=== PATIENT | male | born 1955 | race Two or more races ===

== ENCOUNTER 2020-04-22 23:11 | Emergency (ER) | payer MEDICARE, MEDICAID ==
[~2020-04-22] VITALS: Ht 165.1 cm; Wt 74.8 kg
[2020-04-23] MEDS ORDERED: InsuLIN REG 1unit/0.01ml Soln (100units/ml) ONE (00:39)
[2020-04-23] MEDS ORDERED: SODIUM CHLORIDE 0.9% 1,000 ML IV ONE (00:45)
[2020-04-23] MEDS ORDERED: InsuLIN REG 1unit/0.01ml Soln (100units/ml) IV ONE (00:45)
[2020-04-23 01:09] LABS: Hematocrit 42.5 % (41.0-53.0); Hemoglobin 14.8 g/dL (13.5-17.5); Mean Corpuscular Hemoglobin 32.2 pg (28.0-32.0); Mean Corpuscular Hgb Conc. 34.9 g/dL (32.0-36.0); Mean Corpuscular Volume 92.3 fL (80.0-100.0); Platelet Count (auto) 376 10^3/uL (140-450); Red Cell Distribution Width 13.2 % (11.8-14.3); White Blood Cell 10.9 10^3/uL (4.4-10.8)
[2020-04-23 01:12] LABS: Band Neutrophils % (manual) 0; Basophils % (manual) 0 (0.0-2.0); Blast Cells 0; Eosinophils % (manual) 0 (0-7); Metamyelocytes % 0; Myelocytes % 0; Promyelocytes % 0; Reactive Lymphocytes 0
[2020-04-23 01:21] LABS: Albumin 3.6 g/dL (3.4-5.0); BUN/Creatinine Ratio 15.6; Calcium 9.1 mg/dL (8.5-10.1); Potassium 4.2 mmol/L (3.5-5.1)
[2020-04-23 01:24] LABS: Bilirubin, Total 0.4 mg/dL (0.2-1.0); Total Protein 8.5 g/dL (6.4-8.2)
[2020-04-23 01:25] LABS: Lymphocytes % (manual) 32 (10.0-50.0); Monocytes % (manual) 8 (0-12)
[2020-04-23] MEDS ORDERED: CLINDAMYCIN 900MG IV 50 ML IV ONE (03:30)
[2020-04-23] MEDS ORDERED: cefTRIAXone SOD 1,000 MG VL IV ONE (03:30)
[2020-04-23 05:28] VITALS: BP 169/83
== END 2020-04-23 06:49 | disposition home or self-care (01) ==
LOC: ER 23:11
DX: S91.331A Puncture wound without foreign body, right foot, initial encounter (principal); M72.2 Plantar fascial fibromatosis; E11.65 Type 2 diabetes mellitus with hyperglycemia; I10 Essential (primary) hypertension; X58.XXXA Exposure to other specified factors, initial encounter; Y93.89 Activity, other specified; Y92.89 Other specified places as the place of occurrence of the external cause; Y99.8 Other external cause status
CPT/HCPCS: 36415; 73700; 80053; 82010; 82962; 85007; 85027; 96361; 96365; 96366; 96375; 99284; J0696; J1815; J3490

== ENCOUNTER 2021-06-12 19:04 | Emergency (ER) | payer MEDICARE, MEDICAID ==
[~2021-06-12] VITALS: Ht 154.9 cm; Wt 81.6 kg
[2021-06-12] MEDS ORDERED: SODIUM CHLORIDE 0.9% 1,000 ML IVB ONE (19:30)
[2021-06-12] MEDS ORDERED: InsuLIN REG 1unit/0.01ml Soln (100units/ml) IV ONE (19:30)
[2021-06-12 19:49] LABS: Basophils # (auto) 0 10 ^3/uL (0-0.2); Basophils % (auto) 0.4 % (0.0-2.0); Eosinophils # (auto) 0.1 10 ^3/uL (0-0.8); Eosinophils % (auto) 0.6 % (0.0-7.0); Hematocrit 37.8 % (41.0-53.0); Hemoglobin 12.9 g/dL (13.5-17.5); Lymphocytes # (auto) 1.7 10 ^3/uL (0.4-5.4); Lymphocytes % (auto) 18.1 % (10.0-50.0); Mean Corpuscular Hemoglobin 31.2 pg (28.0-32.0); Mean Corpuscular Hgb Conc. 34.1 g/dL (32.0-36.0); Mean Corpuscular Volume 91.6 fL (80.0-100.0); Monocytes # (auto) 0.6 10 ^3/uL (0-1.3); Monocytes % (auto) 6.8 % (0.0-12.0); Neutrophils # (auto) 6.9 10 ^3/uL (1.6-8.6); Neutrophils % (auto) 74.1 % (37.0-80.0); Red Blood Cells 4.12 10^6/uL (4.5-5.90); Red Cell Distribution Width 13.1 % (11.8-14.3); White Blood Cell 9.3 10^3/uL (4.4-10.8)
[2021-06-12 20:04] LABS: Calcium 8.7 mg/dL (8.5-10.1); Potassium 4.5 mmol/L (3.5-5.1)
[2021-06-12 20:14] LABS: Albumin 3.3 g/dL (3.4-5.0); BUN/Creatinine Ratio 12.1; Bilirubin, Total 0.4 mg/dL (0.2-1.0); Magnesium 1.6 mg/dL (1.6-2.6); Total Protein 7.9 g/dL (6.4-8.2)
[2021-06-13] MEDS ORDERED: BACITRACIN TOP OINT 1 UD PKG TOP ONE (04:15)
[2021-06-13 05:50] VITALS: BP 128/59
== END 2021-06-13 06:30 | disposition home or self-care (01) ==
LOC: ER 19:08
DX: E11.65 Type 2 diabetes mellitus with hyperglycemia (principal); F10.20 Alcohol dependence, uncomplicated; E11.9 Type 2 diabetes mellitus without complications; I10 Essential (primary) hypertension; Y90.8 Blood alcohol level of 240 mg/100 ml or more
CPT/HCPCS: 36415; 71045; 80053; 80320; 82962; 83735; 85025; 93005; 96361; 96374; 99285; J7030

== ENCOUNTER 2024-05-10 15:55 | Inpatient (IN) | payer MEDICARE, MEDICAID ==
[~2024-05-10] VITALS: Ht 160 cm; Wt 68.3 kg
[2024-05-10] MEDS: SODIUM CHLORIDE 0.9% 1,000 ML IV SCH (00:32)
[2024-05-10 16:55] LABS: Rapid Influenza A Negative (Negative); Rapid Influenza B Negative (Negative)
[2024-05-10 16:57] LABS: COVID19 ANTIGEN SOFIA FIA POSITIVE (NEGATIVE)
[2024-05-10 17:00] LABS: Basophils # (auto) 0 10 ^3/uL (0-0.2); Basophils % (auto) 0.5 % (0.0-2.0); Eosinophils # (auto) 0 10 ^3/uL (0-0.8); Eosinophils % (auto) 0.2 % (0.0-7.0); Hematocrit 47.9 % (41.0-53.0); Hemoglobin 16.4 g/dL (13.5-17.5); Lymphocytes # (auto) 1.2 10 ^3/uL (0.4-5.4); Lymphocytes % (auto) 22.3 % (10.0-50.0); Mean Corpuscular Hemoglobin 31.9 pg (28.0-32.0); Mean Corpuscular Hgb Conc. 34.2 g/dL (32.0-36.0); Mean Corpuscular Volume 93.2 fL (80.0-100.0); Monocytes # (auto) 0.7 10 ^3/uL (0-1.3); Monocytes % (auto) 13.4 % (0.0-12.0); Neutrophils # (auto) 3.5 10 ^3/uL (1.6-8.6); Neutrophils % (auto) 63.6 % (37.0-80.0); Nucleated Red Blood Cells % 0.2 %; Red Blood Cells 5.14 10^6/uL (4.5-5.90); Red Cell Distribution Width 13.8 % (11.8-14.3); White Blood Cell 5.5 10^3/uL (4.4-10.8)
[2024-05-10 17:12] LABS: Chloride 94 mmol/L (98-107); Potassium 4.2 mmol/L (3.5-5.1); Sodium 132 mmol/L (136-145)
[2024-05-10 17:13] LABS: Anion Gap 17 (5-15); Carbon Dioxide 21 mmol/L (20-30)
[2024-05-10] MEDS: methylPREDNISolone SOD SUCC 125 MG/2 ML VL IV ONE (17:15)
[2024-05-10 17:18] LABS: BUN/Creatinine Ratio 7.9 (10.0-20.0); Blood Urea Nitrogen 11 mg/dL (9-23); Glucose 332 mg/dL (74-106)
[2024-05-10] MEDS ORDERED: DEXTROSE (50%) 50ML SYRG IV PRN (18:15)
[2024-05-10] MEDS ORDERED: ONDANSETRON HCL 4 MG/2 ML VIAL IV PRN (18:15)
[2024-05-10] MEDS ORDERED: DOCUSATE SOD 100 MG CAP PO PRN (18:15)
[2024-05-10] MEDS ORDERED: ACETAMINOPHEN 325 MG TAB PO PRN (18:15)
[2024-05-10] MEDS ORDERED: NITROGLYCERIN 0.4 MG SL TAB SL PRN (19:45)
[2024-05-10] MEDS ORDERED: MORPHINE SULFATE INJ 2 MG/ml SYRG IV PRN (19:45)
[2024-05-10 20:00] VITALS: PULSE 66; O2SAT 95
[2024-05-10] MEDS: InsuLIN REG 1unit/0.01ml Soln (100units/ml) SC SCH (20:00)
[2024-05-10 20:23] LABS: Magnesium 1.2 mg/dL (1.6-2.6)
[2024-05-10 20:33] LABS: CRP High Sensitivity 4.13 mg/dL (<1.0)
[2024-05-10] MEDS: ALBUTEROL SULF HFA 90MCG INH 200DOSE IN PRN (21:38)
[2024-05-10] MEDS: BUDESONIDE (INHALATION) 180 MCG IH IN SCH (21:38)
[2024-05-10 21:39] VITALS: PULSE 88; RESP 20; O2SAT 97
[2024-05-10 21:40] VITALS: PULSE 89; RESP 18; O2SAT 98
[2024-05-10] MEDS ORDERED: methylPREDNISolone SOD SUCC 40 MG/ML VL IV SCH (22:00)
[2024-05-10] MEDS: ACCU-CHEK COMFORT CURVE STRIP VI SCH (22:10)
[2024-05-10] MEDS: FAMOTIDINE (10MG/ML) 2ML VL IV SCH (22:12)
[2024-05-10 22:38] VITALS: BP 122/72; PULSE 88; RESP 18; TEMP 98.3; O2SAT 97
[2024-05-11] VITALS (11 sets, daily range): BP systolic 151–183; BP diastolic 74–89; PULSE 63–84; RESP 16–19; TEMP 97.5–97.8; O2SAT 94–97
[2024-05-11] MEDS: DOXYCYCLINE 100MG/250ML 250 ML IV SCH (01:23)
[2024-05-11 05:36] LABS: Urine Bacteria None Seen /hpf (None Seen)
[2024-05-11 06:08] LABS: Urine Blood TRACE /uL (Negative); Urine Clarity Clear (Clear); Urine Color Light-Yellow (Yellow); Urine Hyaline Cast FEW /lpf (0 - 2); Urine Protein, UAD 1+ (Negative); Urine Specific Gravity 1.028 (1.001-1.035); Urine Urobilinogen Normal (Negative); Urine WBC 1 /hpf (0 - 3); Urine pH 5.5 (5.0-9.0)
[2024-05-11 08:57] LABS: Alanine Aminotransferase 19 U/L (7-40); Alkaline Phosphatase 77 U/L (46-116); Anion Gap 9 (5-15); Aspartate Aminotransferase 18 U/L (13-40); BUN/Creatinine Ratio 14.1 (10.0-20.0); Bilirubin, Total 0.4 mg/dL (0.2-1.0); Blood Urea Nitrogen 14 mg/dL (9-23); Calcium 9.6 mg/dL (8.7-10.4); Carbon Dioxide 25 mmol/L (20-30); Chloride 102 mmol/L (98-107); Glucose 274 mg/dL (74-106); Potassium 4.1 mmol/L (3.5-5.1); Sodium 136 mmol/L (136-145); Total Protein 7.2 g/dL (5.7-8.2)
[2024-05-11 09:41] LABS: Basophils # (auto) 0 10 ^3/uL (0-0.2); Basophils % (auto) 0.3 % (0.0-2.0); Eosinophils # (auto) 0 10 ^3/uL (0-0.8); Mean Corpuscular Hgb Conc. 35.5 g/dL (32.0-36.0); Monocytes # (auto) 0.2 10 ^3/uL (0-1.3)
[2024-05-11] MEDS ORDERED: DexAMETHasone SOD PHOS 10MG/1ML VIAL INJ IV SCH (10:00)
[2024-05-11 10:29] LABS: Eosinophils % (auto) 0.1 % (0.0-7.0); Hematocrit 48.5 % (41.0-53.0); Hemoglobin 17.2 g/dL (13.5-17.5); Lymphocytes % (auto) 31.2 % (10.0-50.0); Mean Corpuscular Hemoglobin 31.8 pg (28.0-32.0); Mean Corpuscular Volume 89.7 fL (80.0-100.0); Monocytes % (auto) 5.2 % (0.0-12.0); Neutrophils % (auto) 63.2 % (37.0-80.0); Nucleated Red Blood Cells % 0.3 %; Red Blood Cells 5.41 10^6/uL (4.5-5.90); Red Cell Distribution Width 13.8 % (11.8-14.3); White Blood Cell 3.2 10^3/uL (4.4-10.8)
[2024-05-11] MEDS ORDERED: ATOR40TA52 PO (11:13)
[2024-05-11] MEDS ORDERED: GLIP5TAB21 PO (11:13)
[2024-05-11] MEDS ORDERED: MELO7.5T7 PO (11:13)
[2024-05-11] MEDS ORDERED: GABA800T97 PO (11:13)
[2024-05-11] MEDS ORDERED: METF-372 PO (11:52)
[2024-05-11] MEDS ORDERED: INSU100I70 SC (11:54)
[2024-05-11] MEDS ORDERED: INSU100I52 IJ (11:56)
[2024-05-11] MEDS ORDERED: HYDR25TA4 PO (11:57)
[2024-05-11] MEDS ORDERED: HYDR50TA47 PO (11:58)
[2024-05-11] MEDS ORDERED: INSU100I49 SC (12:02)
[2024-05-11] MEDS ORDERED: ASPI1TAB20 PO (12:02)
[2024-05-11] MEDS: ZINC SULFATE 220mg CAP or TAB PO SCH (12:19)
[2024-05-11] MEDS: DexAMETHasone SOD PHOS 10MG/1ML VIAL INJ IV SCH (12:19)
[2024-05-11] MEDS: MULTIPLE VITAMIN TAB PO SCH (12:20)
[2024-05-11] MEDS: ENOXAPARIN SOD 40 MG/0.4 ML SYRINGE SC SCH (12:38)
[2024-05-11] MEDS: HYDROcodone-ACET 5/325MG TAB PO PRN (23:53)
[2024-05-12] VITALS (11 sets, daily range): BP systolic 112–154; BP diastolic 62–91; PULSE 54–108; RESP 18–21; TEMP 97.5–98.8; O2SAT 94–98
[2024-05-12] MEDS ORDERED: DEXTROSE (50%) 50ML SYRG IV PRN (10:45)
[2024-05-12] MEDS: ACCU-CHEK COMFORT CURVE STRIP VI SCH (11:17)
[2024-05-12] MEDS: InsuLIN REG 1unit/0.01ml Soln (100units/ml) SC SCH (12:24)
[2024-05-13] VITALS (13 sets, daily range): BP systolic 135–191; BP diastolic 67–84; PULSE 59–84; RESP 16–19; TEMP 97.5–98.1; O2SAT 93–99
[2024-05-14] VITALS (8 sets, daily range): BP systolic 134–166; BP diastolic 67–95; PULSE 58–75; RESP 16–18; TEMP 97.5–97.9; O2SAT 92–97
[2024-05-14] MEDS ORDERED: ALBUAER3 IN (09:37)
[2024-05-14] MEDS ORDERED: ZINC220C8 PO (09:37)
[2024-05-14] MEDS ORDERED: PRED20TA2 PO (09:37)
[2024-05-14] MEDS ORDERED: DOXY100C79 PO (09:37)
[2024-05-14] MEDS ORDERED: ASCO500T11 PO (09:37)
== END 2024-05-14 15:19 | disposition home or self-care (01) | DRG 177 ==
LOC: ER 15:55 → TELE 19:39 → TELE-WESTW 05-11 10:23 → TELE-CENTR 05-12 03:45
PROVIDERS: ADMIT Internal Medicine Pulmonary Disease; ATTEND Family Medicine
DX: U07.1 COVID-19 (principal); J12.82 Pneumonia due to coronavirus disease 2019; J96.01 Acute respiratory failure with hypoxia; E11.65 Type 2 diabetes mellitus with hyperglycemia; I10 Essential (primary) hypertension; E78.00 Pure hypercholesterolemia, unspecified; F17.210 Nicotine dependence, cigarettes, uncomplicated; Z89.511 Acquired absence of right leg below knee; Z79.4 Long term (current) use of insulin; Z79.899 Other long term (current) drug therapy; Z79.82 Long term (current) use of aspirin; Z83.3 Family history of diabetes mellitus
CPT/HCPCS: 36415; 71045; 71046; 80048; 80053; 81001; 82306; 82962; 83036; 83605; 83735; 83880; 84443; 84484; 85025; 85379; 86141; 87426; 87804; 93005; 94640; 96374; G0378; J1100; J1815; J3490